=== PATIENT | female | born 1990 | race Two or more races ===

== ENCOUNTER 2019-07-24 18:11 | Emergency (ER) | payer OTHER ==
[~2019-07-24] VITALS: Ht 157.5 cm; Wt 66.7 kg
[~2019-07-24 18:11] MED LIST: BENADRYL50 MG PO; KETO10TA2 PO
[2019-07-24] MEDS ORDERED: OBSTETRIX DHA1 EACH (18:16)
== END 2019-07-24 22:44 | disposition home or self-care (01) ==
LOC: ER 18:11
DX: O20.0 Threatened abortion (principal)

== ENCOUNTER 2019-07-28 01:20 | Emergency (ER) | payer OTHER ==
[~2019-07-28] VITALS: Ht 157.5 cm; Wt 66.7 kg
[~2019-07-28 01:20] MED LIST changes: +OBSTETRIX DHA1 EACH
[2019-07-28] MEDS ORDERED: DOXYCYCLINE150 MG PO (08:52)
== END 2019-07-28 11:27 | disposition home or self-care (01) ==
LOC: ER 01:20
DX: O03.1 Delayed or excessive hemorrhage following incomplete spontaneous abortion (principal); Z34.82 Encounter for supervision of other normal pregnancy, second trimester

== ENCOUNTER 2020-10-01 12:53 | Outpatient (CLI) | payer OTHER ==
[~2020-10-01 12:53] MED LIST changes: +DOXYCYCLINE150 MG PO
== END 2020-10-01 19:07 | disposition home or self-care (01) ==
LOC: OBS/DEL 12:53
PROVIDERS: ATTEND Specialist
DX: O36.8130 Decreased fetal movements, third trimester, not applicable or unspecified (principal); Z3A.29 29 weeks gestation of pregnancy

== ENCOUNTER 2020-12-08 10:33 | Inpatient (IN) | payer OTHER ==
[~2020-12-08] VITALS: Ht 157.5 cm; Wt 75.7 kg
== END 2020-12-11 16:20 | disposition home or self-care (01) | DRG 807 ==
LOC: LDR 10:33 → SURG-SUITE 12-09 00:55
PROVIDERS: ADMIT Specialist; ATTEND Specialist
PROC: 10E0XZZ Delivery of Products of Conception, External Approach (ICD-10-PCS; principal; 2020-12-08)
PROC: 0W8NXZZ Division of Female Perineum, External Approach (ICD-10-PCS; 2020-12-08)
PROC: 3E0P7VZ Introduction of Hormone into Female Reproductive, Via Natural or Artificial Opening (ICD-10-PCS; 2020-12-08)
PROC: 4A1HXFZ Monitoring of Products of Conception, Cardiac Rhythm, External Approach (ICD-10-PCS; 2020-12-08)
DX: O42.02 Full-term premature rupture of membranes, onset of labor within 24 hours of rupture (principal); Z37.0 Single live birth; Z3A.39 39 weeks gestation of pregnancy; Z20.822 Contact with and (suspected) exposure to COVID-19